=== PATIENT | male | born 1985 | race Caucasian/White ===

== ENCOUNTER 2021-04-01 06:12 | Inpatient (IN) | payer BC ==
[~2021-04-01] VITALS: Ht 182.9 cm; Wt 77.2 kg
--- NOTE | 2021-04-01 06:43 | PHYS DOC ---
General Adult EDM: Chief Complaint: WITHDRAWL HPI: HPI: Patient is a 35 year old here with report of "I am in DTs." He reports that he is here for alcohol detox. He thinks his last drink may have been sometime last night or early this morning, possibly at 4 AM. He took an Uber here from [facility]. He reports that he has a history of seizures from alcohol withdrawal, though he has not had a seizure today or recently. He reports that he vomited just prior to getting into the Uber to come here. He reports mild nausea now. He denies abdominal pain. He denies chest pain or dyspnea. He denies dizziness, syncope, focal weakness. Denies fevers or chills. He reports that he has a history of heavy alcohol use. He has reportedly been to detox at multiple facilities previously. He was under the impression that there was an inpatient detox facility at this hospital here. The patient and his father had reportedly found some facility in [facility] called [facility], which is reportedly a [facility] recovery center. The patient and his father reportedly were able to procure a bed for him there, and they had been in contact with someone named Birdie, the credentials of which are unknown, as she did not tell me what her credentials were. I was able to contact her, and I kindly asked to speak with an accepting physician. She refused to allow me to speak with the physician, I would not given the name of any physician. She reported that she was told that the patient was in an unknown ER, which she indicated she thought was closer to [place], and that the ER was refusing to care for the patient. I explained that this is patently untrue. I also did explain that this patient has a history of alcohol withdrawal, including alcohol withdrawal seizures, and that [place] is several hours from this facility, and I do not believe that private vehicle transport is appropriate, nor is it safe. The patient's father agrees that he does not feel that this is safe, and he does not feel comfortable taking the patient by private vehicle, with the concern that he may experience alcohol withdrawal and/or seizures in route. Birdie curtly exclaimed "don't send him then." I explained this to the patient and his father, multiple times. Review of Systems: Review of Systems: Constitutional: Denies fever or chills. [] HENT: Denies nasal congestion or sore throat. [] Respiratory: Denies cough or shortness of breath. [] Cardiovascular: Denies chest pain or edema. [] GI: He denies abdominal pain. He does report nausea and vomiting. Denies hematemesis. Denies bowel habit changes. Musculoskeletal: Denies myalgias, back pain, joint pain or swelling. Neurologic: Denies headache, focal weakness or sensory changes. [] Psychiatric: Chronic and unchanged mood disturbance. Chronic alcohol use disorder. [] Heart Score: C/O Chest Pain: No Risk Factors: Risk Factors: DM, Current or recent (<one month) smoker, HTN, HLP, family history of CAD, obesity. Risk Scores: Score 0 - 3: 2.5% MACE over next 6 weeks - Discharge Home Score 4 - 6: 20.3% MACE over next 6 weeks - Admit for Clinical Observation Score 7 - 10: 72.7% MACE over next 6 weeks - Early Invasive Strategies Physical Exam: PE: Constitutional: Well developed, well nourished, no acute distress, non-toxic appearance. He is resting comfortably. He manifests no evidence of acute illness at present. HENT: Normocephalic, atraumatic, oropharynx is patent, clear, mucous membranes are moist. Eyes: Sclera are clear and anicteric. Neck: Normal range of motion, no tenderness, supple, achy is midline. Cardiovascular tachycardic, regular, +2 radial and posterior tibial pulses bilaterally. No peripheral edema. He is warm and well-perfused appearing. Lungs & Thorax: Bilateral breath sounds clear to auscultation [] Abdomen: Abdomen soft, nondistended, nontender to palpation. Skin: Warm, dry, no erythema, no rash. No jaundice. Back: No tenderness, no CVA tenderness. [] Extremities: No tenderness, no cyanosis, no clubbing, ROM intact, no edema. No calf tenderness. Neurologic: Awake, alert and oriented X 3, normal motor function, normal sensory function, no focal deficits noted. No tremulousness noted. Speech is clear and fluent. He is noted to ambulate steadily here in the ED. Psychologic: Anxious, intermittently agitated, intermittently argumentative and hostile, verbally redirectable. Denies SI or HI. EKG: EKG: [] Radiology/Procedures: Radiology/Procedures: [] Course & Med Decision Making: Course & Med Decision Making Pertinent Labs and Imaging studies reviewed. (See chart for details) IVF boluses and IV banana bag given. IV Ativan, multiple doses given. IM Haldol given. IV magnesium sulfate replacement given. He has not manifested a ny vomiting here. His tachycardia is improving. He remains intermittently anxious with some psychomotor agitation, with intermittent verbal hostility, and he initially manifests no evidence of withdrawal. He was seen by Mark of the PAT team, and he tried all day to get the patient admitted either [facility] or to [facility], and after several hours of repeatedly conta cting them, they finally declined to accept him. After several hours, the patient is now manifesting evidence of mild alcohol withdrawal. He is given more IV fluids and Ativan. No AMS or seizure activity noted. He is still awake, alert, conversant, he is not altered in mental status. His father came to the ER. I spoke with the patient on multiple instances, and I explained that his care has been appropriate here in the emergency department. He had been telling his father as well as this facility in [place] that he was being refused treatment. I explained that this is patently false and is absolutely untrue. He has been treated appropriately. I do recommend he be admitted to the hospital for treatment of alcohol withdrawal, and the PAT team will follow him while he is admitted. After lengthy discussions with the patient and his father, he did ultimately agree to this. I do not recommend that he leave AGAINST MEDICAL ADVICE, I do not recommend that he be transported to a facility several hours away, and I repeatedly expressed this to the patient as well as his father. He finally accepts the offer for admission, he is accepted for admission by Dr. Farrell. Sonja Disclaimer: Sonja Disclaimer: This electronic medical record was generated, in whole or in part, using a voice recognition dictation system. Departure Departure Impression: Primary Impression: Alcohol use disorder Additional Impressions: Alcohol withdrawal Hypomagnesemia Disposition: ADMITTED INPATIENT Admitting Physician: HÉCTOR Condition: STABLE SUETERESITA DO Apr 01, 2021 06:43
[2021-04-01] MEDS ORDERED: ONDANSETRON PF 4 MG/2 ML VIAL. IVP ONE (07:30)
[2021-04-01] MEDS ORDERED: IV NORMAL SALINE 1000ML BAG 1,000 ML IV ONE ×3 (07:30→17:00)
[2021-04-01 07:38] LABS: BASO % 1 % (0-3); BILIRUBIN,URINE NEGATIVE (NEG); CLARITY,URINE CLEAR; COLOR,URINE AMBER; EOS % 0 % (0-3); HEMATOCRIT 46.4 % (39.0-53.0); HEMOGLOBIN 15.9 g/dL (13.0-17.5); LYMPH # 1.5 x10^3/uL (1.0-4.8); LYMPH % 17 % (24-48); MEAN CORPUSCULAR HEMOGLOBIN 32 pg (25-35); MEAN CORPUSCULAR HGB CONC 34 g/dL (31-37); MEAN CORPUSCULAR VOLUME 94 fL (79-100); MONO # 0.5 x10^3/uL (0.0-1.1); MONO % 5 % (0-9); NEUT # 6.6 x10^3/uL (1.8-7.7); NEUT % 77 % (31-73); NITRITE,URINE NEGATIVE (NEG); PLATELET COUNT 144 x10^3/uL (140-400); PROTEIN,URINE 100 mg/dL (NEG-TRACE); RED BLOOD COUNT 4.95 x10^6/uL (4.30-5.70); RED CELL DISTRIBUTION WIDTH 14.1 % (11.5-14.5); WHITE BLOOD COUNT 8.6 x10^3/uL (4.0-11.0)
[2021-04-01 07:46] LABS: AMPHETAMINE/METHAMPHETAMINE NEG (NEG); BARBITURATES POS (NEG); BENZODIAZEPINES POS (NEG); CANNABINOIDS POS (NEG); COCAINE NEG (NEG); METHADONE NEG (NEG); OPIATES NEG (NEG); PHENCYCLIDINE NEG (NEG)
[2021-04-01 07:55] LABS: BACTERIA,URINE 0 /HPF (0-FEW); RBC,URINE 0 /HPF (0-2); WBC,URINE RARE /HPF (0-4)
[2021-04-01 08:05] LABS: CALCIUM 8.5 mg/dL (8.5-10.1); CREATININE 0.8 mg/dL (0.7-1.3); POTASSIUM 3.6 mmol/L (3.5-5.1)
[2021-04-01 08:13] LABS: ALBUMIN 4.2 g/dL (3.4-5.0); ALBUMIN/GLOBULIN RATIO 1.4 (1.0-1.7); MAGNESIUM 1.7 mg/dL (1.8-2.4); TOTAL BILIRUBIN 0.7 mg/dL (0.2-1.0); TOTAL PROTEIN 7.2 g/dL (6.4-8.2)
[2021-04-01 08:14] LABS: ACETAMIN < 2 mcg/ml (10-30); ETHANOL 301 mg/dL (0-10)
[2021-04-01] MEDS ORDERED: MULTIVIT INFUSN,ADULT 4,VIT K 10 ML, THIAMINE INJ 100 MG, FOLIC ACID INJ 1 MG in IV NOR... IV ONE (08:30)
[2021-04-01] MEDS ORDERED: MAGNESIUM SULFATE 2GM 50 ML IV ONE (08:30)
[2021-04-01] MEDS ORDERED: HALOPERIDOL LACTATE 5 MG/ML VIAL. IM ONE (12:00)
[2021-04-01] MEDS ORDERED: ONDANSETRON PF 4 MG/2 ML VIAL. IVP PRN (17:00)
[2021-04-01] MEDS ORDERED: HALOPERIDOL LACTATE 5 MG/ML VIAL. IVP PRN (17:00)
[2021-04-01] MEDS ORDERED: diphenhydrAMINE 50 MG/ML VIAL IVP PRN (17:00)
[2021-04-01 19:00] VITALS: BP 129/71
[2021-04-01] MEDS ORDERED: diphenhydrAMINE HCL 25 MG CAPSULE PO PRN (20:30)
--- NOTE | 2021-04-01 21:46 | HP ---
DATE OF SERVICE: 04/01/2021 ADMIT DATE: 04/01/2021 CHIEF COMPLAINT: Alcohol withdrawal. HISTORY OF PRESENT ILLNESS: The patient is a pleasant middle-aged male who drinks a liter of vodka each day. He has a history of alcoholism and seizures from alcohol. He wants to detox. Originally while in the ER, they tried to get into a facility, but eventually the facility called, so they could not take him. He is now actually actively withdrawing. I discussed the case with ER physician. We are going to admit the patient for alcohol withdrawal protocol. PAST MEDICAL HISTORY: Alcoholism. ALLERGIES: None. FAMILY HISTORY: Alcoholism. SOCIAL HISTORY: He drinks a liter of vodka a day. He does not take drugs or smoke. MEDICATIONS: Reviewed. Please refer to the MRAD. REVIEW OF SYSTEMS: GENERAL: He complaint of weakness. SKIN: No bruising, hair changes or rashes. EYES: No blurred, double or loss of vision. NOSE AND THROAT: No history of nosebleeds, hoarseness or sore throat. HEART: No history of palpitations, chest pain or shortness of breath on exertion. LUNGS: Denies cough, hemoptysis, wheezing or shortness of breath. GASTROINTESTINAL: Denies changes in appetite, nausea, vomiting, diarrhea or constipation. GENITOURINARY: No history of frequency, urgency, hesitancy or nocturia. NEUROLOGIC: He is complains of shaking. PSYCHIATRIC: He is complains of depression. ENDOCRINE: No history of heat or cold intolerance, polyuria or polydipsia. EXTREMITIES: Denies muscle weakness, joint pain, pain on walking or stiffness. PHYSICAL EXAMINATION: VITALS: Within normal limits and are stable. GENERAL: No apparent distress. Alert and oriented. HEENT: Normal cephalic atraumatic, external auditory canals are patent EYES: Extraocular muscles are intact, pupils are equally round and reactive to light and accommodation MUSCULOSKELETAL: Well developed, well nourished, good range of motion ENDOCRINE: No thyromegaly was palpated LYMPHATICS: No cervical chain or axillary nodes were noted HEMATOPOIETIC: No bruising NECK: Supple, no JVD, no thyromegaly was noted. LUNGS: Clear to auscultation in all lung wilder without rhonchi or wheezing. HEART: RRR, S1, S2 present. Peripheral pulses intact, no obvious murmurs were noted. ABDOMEN: Soft, nontender. Positive bowel sounds no organomegaly, normal bowel sounds. EXTREMITIES: Without any cyanosis, clubbing, or edema. Pedal pulses intact, Homans sign is negative. NEUROLOGIC: He started withdrawal with some shaking. PSYCHIATRIC: Normal affect, normal mood. Stable. SKIN: No ulcerations or rashes, good skin turgor, no jaundice. VASCULAR: Good capillary refill, neurovascular bundle appears to be intact. LABORATORY DATA: Hematology is normal. Electrolytes are normal. Drug screen positive for barbiturates and benzos and cannabinoids and alcohol. Alcohol level is 301. ASSESSMENT AND PLAN: Alcohol withdrawal. The patient will be admitted for alcohol withdrawal protocol. Consult the psychiatric assessment team. HERMINIO/DEREK DR: HERMINIO/david TID: [id number]
[2021-04-01 23:00] VITALS: BP 132/78
[2021-04-02 03:00] VITALS: BP 138/82
[2021-04-02 07:00] VITALS: BP 130/73
[2021-04-02] MEDS ORDERED: MULTIVIT INFUSN,ADULT 4,VIT K 10 ML, THIAMINE INJ 100 MG, FOLIC ACID INJ 1 MG in IV NOR... IV SCH (09:00)
--- NOTE | 2021-04-02 10:22 | NUR ---
SW following. Discussed with RN, pt from home alone, room air, regular diet. MATTHEW consult for ETOH use/abuse. RN advised no other SW needs at this time. SW will continue to follow. Addendum: 04/02/21 at 1313 by DIPAK LERMA SW Yolie CHEEMA) met with pt, pt has a bed at [facility] in [place], and his father will drive him down there today. Discharge order for home with self care. No other SW needs. Pt provided resources for care coordination when he returns from rehab.
[2021-04-02 11:00] VITALS: BP 143/85
--- NOTE | 2021-04-02 11:07 | PDOC ---
[employer] PROGRESS NOTE Date of Service DOS: DATE: 04/02/21 TIME: 11:06 Chief Complaint Chief Complaint Alcohol withdrawal History of Present Illness History of Present Illness 04/02/2020 Patient seen and examined He seems to be approaching his baseline We will try to discharge this afternoon please see dictation Vitals/I&O Vitals/I&O: Vital Signs Date Time Temp Pulse Resp B/P (MAP) Pulse Ox O2 Delivery O2 Flow Rate FiO2 04/02/21 08:10 Room Air 04/02/21 07:00 97.7 56 16 130/73 (92) 99 97.7 I & O 04/01/21 04/01/21 04/02/21 15:00 23:00 07:00 Intake Total 3050 ml Output Total 500 ml Balance 3050 ml -500 ml Physical Exam General: Alert Heart: Regular rate Lungs: Clear Abdomen: Normal bowel sounds Extremities: No clubbing Skin: No rashes Labs Labs: Laboratory Tests Test 04/01/21 12:30 Ethyl Alcohol Level 149 mg/dL (0-10) Assessment and Plan Assessmemt and Plan Problems Medical Problems: (1) Alcohol use disorder Status: Acute (2) Alcohol withdrawal Status: Acute (3) Hypomagnesemia Status: Acut Discharge see dictation Comment Review of Relevant I have reviewed the following items magy (where applicable) has been applied. Medications: Current Medications Medications (Trade) Dose Ordered Sig/Eran Route PRN Reason Start Time Stop Time Status Last Admin Dose Admin Haloperidol Lactate (Haldol Inj) 5 mg 1X ONCE IM 04/01/21 12:00 04/01/21 12:01 DC 04/01/21 12:03 Sodium Chloride 1,000 ml @ 1,000 mls/hr 1X ONCE IV 04/01/21 12:00 04/01/21 12:59 DC 04/01/21 12:03 Lorazepam (Ativan Inj) 2 mg 1X ONCE IVP 04/01/21 13:30 04/01/21 13:32 DC 04/01/21 13:52 Lorazepam (Ativan Inj) 2 mg 1X ONCE IVP 04/01/21 16:15 04/01/21 16:16 DC 04/01/21 16:18 Sodium Chloride 1,000 ml @ 125 mls/hr 1X ONCE IV 04/01/21 17:00 04/02/21 00:59 DC 04/01/21 17:34 Multivitamins 10 ml/Thiamine HCl 100 mg/Folic Acid 1 mg/Sodium Chloride 1,011.2 ml @ 100 mls/ hr DAILY IV 04/02/21 09:00 04/05/21 19:07 04/02/21 09:00 Lorazepam (Ativan Inj) 2 mg PRN Q1HR PRN IV For CIWA 8-14 04/01/21 17:00 04/02/21 09:01 Diphenhydramine HCl (Benadryl) 50 mg PRN BID PRN PO INSOMNIA 04/01/21 20:30 04/01/21 21:25 Justifications for Admission Other Justification NISHANT BURDICK III DO Apr 02, 2021 11:07
--- NOTE | 2021-04-02 11:48 | DS ---
DATE OF DISCHARGE: 04/02/2021 ADMITTING DIAGNOSIS: Alcohol withdrawal. DISCHARGE DIAGNOSES: Resolving alcohol withdrawal. HOSPITAL COURSE: The patient is a pleasant middle-aged male who presented to the ER last night with alcohol withdrawal. We gave him banana bags and benzos overnight. This morning, I saw and examined. He is approaching his baseline. His dad wants to take him to an alcohol treatment center in [place]. He is here to take the patient. I had the nurse call me and explained the situation. I also called the case management, they would like to have the psychiatric assessment team look at him as well. Overall, he is doing well. We are going to the discharge order and see if we can arrange for outpatient or inpatient alcohol rehab, awaiting what the psychiatric assessment team recommendations are. DISPOSITION: Pending. ACTIVITY: As tolerated. DIET: Low sodium. DISCHARGE MEDICATIONS: Please see the MRAD. Multiple vitamins. TOTAL TIME: [address]: Issa TID: [id number]
--- NOTE | 2021-04-02 13:19 | NUR ---
Patient discharge today after PAT team saw the patient and okay with him going to [facility] at [place], [place]. Patient discharge via ambulation, accompanied by Father and this RN. Patient is stable, IV removed and discharge paperwork given to patient. Patient and father verbalized understanding of followup and discharge instruction. Patient father will take him to [facility] aft discharge.
[2021-04-06] MEDS ORDERED: THIAMINE 100 MG TABLET. PO SCH (09:00)
[2021-04-06] MEDS ORDERED: THIAMINE IM 200 MG/2 ML VIAL. IM SCH (09:00)
[2021-04-06] MEDS ORDERED: FOLIC ACID 1 MG TABLET. PO SCH (09:00)
[2021-04-06] MEDS ORDERED: MULTIVITAMIN with MINERAL TABLET. PO SCH (09:00)
== END 2021-04-02 13:24 | disposition short-term general hospital (02) | DRG 641 ==
LOC: ER 06:12 → OBSVTOIN 16:40 → 5 NORTH 16:40
PROVIDERS: ADMIT Internal Medicine; ATTEND Internal Medicine
DX: E83.42 Hypomagnesemia (principal); F10.239 Alcohol dependence with withdrawal, unspecified; R11.2 Nausea with vomiting, unspecified; Z79.899 Other long term (current) drug therapy; Y90.8 Blood alcohol level of 240 mg/100 ml or more
CPT/HCPCS: 36415; 80053; 80307; 80329; 81001; 83690; 83735; 85025; 96361; 96365; 96366; 96368; 96372; 96375; 96376; G0480; J1630; J2060; J2405; J3411; J3475; J3490; J7030; 99285-25; G0378; Q0163